=== PATIENT | female | born 2000 | race Caucasian/White ===

== ENCOUNTER 2024-03-27 10:41 | Emergency (ER) | payer OTHER ==
[~2024-03-27] VITALS: Ht 167.6 cm; Wt 63.2 kg
[2024-03-27 11:08] LABS: BILIRUBIN, URINE NEGATIVE (negative); BLOOD/HGB, URINE NEGATIVE (Negative); KETONE, URINE NEGATIVE (Negative); LEUK ESTERASE, URINE NEGATIVE (negative); NITRITE, URINE NEGATIVE (negative)
[2024-03-27 11:15] LABS: BACTERIA, URINE 1+ /hpf (negative); CASTS, URINE NONE SEEN \\lpf; COLLECTION TYPE, URINE CLEAN CATCH; CRYSTALS, URINE NONE SEEN (0-1+); EPITHELIAL CELLS, URINE SQUAMOUS 3+ /lpf (0-1+); RED BLOOD CELLS, URINE 0-1 /hpf (0-5); REFLEX CULTURE, URINE No (No)
[2024-03-27 11:27] LABS: BASOPHILS 0.6 % (0-2); EOSINOPHILS 0.8 % (0-6); HEMATOCRIT 42.5 % (35.0-50.0); HEMOGLOBIN 15.2 g/dL (12.0-18.0); LYMPHOCYTES 25.2 % (24-44); MCH 31.8 (27-36); MCHC 35.7 g/dl (30-36); MCV 89.1 fl (81-99); MONOCYTES 7.8 % (0-12); NEUTROPHILS 65.6 % (39-80); PLATELET COUNT 329 K/uL (140-440); RBC 4.77 M/ul (4.3-5.7); RDW 12.6 (10.5-15.0)
[2024-03-27 11:49] LABS: ALBUMIN 4.4 g/dL (3.4-5.0); ALBUMIN/GLOBULIN RATIO 1.22 (1.1-2.4); ANION GAP 13.7 (7-21); BILIRUBIN, TOTAL 1.4 ng/dL (0.2-1.0); BUN/CREATININE RATIO 10.12 (6.0-28.6); CALCIUM 9.2 mg/dL (8.5-10.1); CREATININE, SERUM 0.79 mg/dL (0.55-1.02); POTASSIUM 3.7 mmol/L (3.5-5.1)
[2024-03-27 11:53] LABS: ABO O
[2024-03-27 11:54] LABS: RH NEGATIVE
[2024-03-27 12:45] VITALS: BP 125/86
== END 2024-03-27 12:45 | disposition home or self-care (01) ==
LOC: ED 10:41
PROVIDERS: Emergency Medicine
DX: O26.891 Other specified pregnancy related conditions, first trimester (principal); R10.2 Pelvic and perineal pain; Z3A.01 Less than 8 weeks gestation of pregnancy
CPT/HCPCS: 36415; 76801; 76817; 80053; 81001; 84702; 84703; 85025; 86900; 86901; 99284-25

== ENCOUNTER 2024-12-06 09:21 | Inpatient (IN) | payer OTHER ==
[~2024-12-06] VITALS: Ht 162.6 cm; Wt 82.1 kg
[2024-12-06] MEDS ORDERED: LACTATED RINGER'S 1,000 ML IV PRN (09:45)
[2024-12-06] MEDS ORDERED: CALCIUM CARBONATE 500 MG CHEW PO PRN ×2 (09:45→15:30)
[2024-12-06] MEDS ORDERED: ondansetron HCL 4 MG/2 ML VIAL IV PRN (09:45)
[2024-12-06] MEDS ORDERED: OXYTOCIN/0.9 % SODIUM CHLORIDE 30 UNITS/500 ML BAG IV SCH (09:45)
[2024-12-06] MEDS ORDERED: MAGNESIUM HYDROXIDE/AL HYDROX 30 ML CUP PO PRN ×2 (09:45→15:30)
[2024-12-06 09:54] LABS: HEMATOCRIT 37.8 % (34.1-44.9); HEMOGLOBIN 12.6 g/dL (11.2-15.7); MCH 28.3 PG (25.6-32.2); MCHC 33.3 g/dL (32.2-35.5); MCV 84.8 fL (79.4-94.8); RBC 4.46 M/uL (3.93-5.22)
[2024-12-06 10:10] LABS: AMPHETAMINES, URINE NEGATIVE (NEGATIVE); BARBITURATES, URINE NEGATIVE (NEGATIVE); BENZODIAZEPINE, URINE NEGATIVE (NEGATIVE); BUPRENORPHINE, URINE NEGATIVE (NEGATIVE); CANNABINOID, URINE NEGATIVE (NEGATIVE); COCAINE, URINE NEGATIVE (NEGATIVE); ECSTASY, URINE NEGATIVE (NEGATIVE); FENTANYL, URINE NEGATIVE (NEGATIVE); METHADONE, URINE NEGATIVE (NEGATIVE); OPIATES, URINE NEGATIVE (NEGATIVE); OXYCODONE, URINE NEGATIVE (NEGATIVE); PHENCYCLIDINE, URINE NEGATIVE (NEGATIVE)
[2024-12-06] MEDS ORDERED: ROPIVACAINE 0.2% 200 ML BAG EPIDURAL SCH (10:45)
[2024-12-06] MEDS ORDERED: LACTATED RINGER'S 2,000 ML IV ONE (10:45)
[2024-12-06] MEDS ORDERED: LACTATED RINGER'S 500 ML IV PRN (10:45)
[2024-12-06] MEDS ORDERED: ePHEDrine sulfate 5 MG/ML SYRINGE IV PRN (10:45)
[2024-12-06 11:06] LABS: ABO O; ANTIBODY SCREEN POSITIVE; RH NEGATIVE
[2024-12-06 11:07] LABS: ANTIBODY IDENTIFICATION ANTI-D
[2024-12-06] MEDS ORDERED: HYDROCORTISONE ACETATE 25 MG SUPP PR PRN (15:30)
[2024-12-06] MEDS ORDERED: OXYTOCIN/0.9 % SODIUM CHLORIDE 500 ML IV SCH (15:30)
[2024-12-06] MEDS ORDERED: MAGNESIUM HYDROXIDE 30 ML UDC PO PRN (15:30)
[2024-12-06] MEDS ORDERED: IBUPROFEN 600 MG TAB PO PRN (15:30)
[2024-12-06] MEDS ORDERED: HYDROCODONE/ACETA 5/325 TAB PO PRN (15:30)
[2024-12-06] MEDS ORDERED: OXYCODONE/APAP 5/325 TAB PO PRN (15:30)
[2024-12-06] MEDS ORDERED: BENZOCAINE 60 ML AEROSOL TOP PRN (15:30)
[2024-12-06] MEDS ORDERED: WITCH HAZEL/GLYCERIN 1 EA PAD TOP PRN (15:30)
[2024-12-06] MEDS ORDERED: ACETAMINOPHEN 325 MG TAB PO PRN (15:30)
[2024-12-06 18:22] VITALS: BP 118/69
[2024-12-06] MEDS ORDERED: SENNOSIDES/DOCUSATE 1 EA TAB PO SCH (21:00)
[2024-12-07 05:33] LABS: HEMATOCRIT 33.8 % (34.1-44.9); HEMOGLOBIN 11.1 g/dL (11.2-15.7); MCH 28.5 PG (25.6-32.2); MCHC 32.8 g/dL (32.2-35.5); MCV 86.7 fL (79.4-94.8); RBC 3.9 M/uL (3.93-5.22)
[2024-12-07 06:54] LABS: ABO O; RH NEGATIVE
[2024-12-07 06:55] LABS: ANTIBODY IDENTIFICATION ANTI-D; ANTIBODY SCREEN POSITIVE; FETAL HEMOGLOBIN SCREEN NEGATIVE; RHIG STATUS NOT CANDIDATE
--- NOTE | 2024-12-07 13:58 | PR ---
[facility] [address] [facility] [place], [place] [address] Signed PP Progress Notes Datetime Report Generated by CPN: 12/07/2024 13:58 SUBJECTIVE: [id number] Pain: Within Normal Limits Nausea/Vomiting: Denies Flatus: Yes Bowel Movement: No Vital Signs: [id number] Vital Signs: Reviewed; Within Normal Limits Cardiovascular: Normal Respiratory: Normal Abdomen/Uterus: Normal Lochia: Normal Vulva/Perineum: Not Done Breasts: Not Done CVA Tenderness: Normal Extremities: Normal Incision: Not Applicable Progress: Normal Exam Comments: Fundus firm U-2 nontender IMPRESSION/PLAN/PROCEDURES: [id number] Impression: Normal Progression Plan: Discharge Progress Notes: Pt seen and examined. Doing well. Ambulating, voiding, and tolerating full diet. Pain and lochia minimal. well. No fevers, chills, or other concerns. Desires d/c home today. Undecided on pp contraception. Reviewed d/c instructions and medications. F/U in 2 wks. All questions answered. Signing Physician: José Manuel Duenas DO Copies: ~ *Electronically Signed* 12/07/24 3237 JOSÉ MANUEL DUENAS (ASHLEY) DO PATIENT NAME: DAILY RINCON PROGRESS NOTE DATE OF : 01 PHYSICIAN: JOSÉ MANUEL DUENAS (JD) DO RPT #: [id number] REPORT IS CONFIDENTIAL AND NOT TO BE RELEASED WITHOUT AUTHORIZATION
== END 2024-12-07 17:40 | disposition home or self-care (01) | DRG 807 ==
LOC: FBC 09:21
PROVIDERS: ADMIT Obstetrics & Gynecology; ATTEND Obstetrics & Gynecology
PROC: 10E0XZZ Delivery of Products of Conception, External Approach (ICD-10-PCS; principal; 2024-12-06)
PROC: 0KQM0ZZ Repair Perineum Muscle, Open Approach (ICD-10-PCS; 2024-12-06)
PROC: 10907ZC Drainage of Amniotic Fluid, Therapeutic from Products of Conception, Via Natural or Artificial Opening (ICD-10-PCS; 2024-12-06)
PROC: 3E0R3BZ Introduction of Anesthetic Agent into Spinal Canal, Percutaneous Approach (ICD-10-PCS; 2024-12-06)
PROC: 00HU33Z Insertion of Infusion Device into Spinal Canal, Percutaneous Approach (ICD-10-PCS; 2024-12-06)
DX: O48.0 Post-term pregnancy (principal); Z37.0 Single live birth; O69.81X0 Labor and delivery complicated by cord around neck, without compression, not applicable or unspecified; Z3A.40 40 weeks gestation of pregnancy; O70.1 Second degree perineal laceration during delivery; Z67.41 Type O blood, Rh negative
CPT/HCPCS: 36415; 80307; 83030; 85027; 86850; 86870; 86900; 86901; A9270; J2790; J7121